=== PATIENT | female | born 1995 | race African-American/Black ===

== ENCOUNTER 2020-03-27 13:25 | Outpatient (CLI) | payer OTHER, SELFPAY ==
--- NOTE | ~2020-03-27 | US_ITS ---
EXAMINATION: US OB /maternal detail DATE: 03/27/2020 14:31 INDICATION: Second trimester anatomic survey TECHNIQUE: Real-time ultrasound of the pelvis was performed. COMPARISON: None. FINDINGS: There is a single living fetus in vertex presentation. The placenta is fundal. heart rate is 14 4 beats per minute (bpm). cardiac activity and movement are noted. The amniotic fluid in dex is 14.3 cm which is normal. The following anatomy was identified as normal: 4 chamber heart 3 vessel cord cord insertion kidneys urinary bladder stomach spine diaphragm ventricles cisterna magna cerebellum The following biometric data were obtained: Biparietal diameter (BPD): 5.0 cm; head circumference (HC): 18.1 cm; abdominal circumference (AC): 16 .5 cm; femur length (FL): 3.4 cm. These measurements are concordant. Estimated weight is 401 g +/- 60 g, which correlates with the 76th percentile when 08/10/2020 is used as estimated date of delivery. As single measurements, these parameters are each equal to the following estimated gestational ages w ith ranges of +/- 2 standard deviations: BPD: 21 weeks 2 days +/- 1 weeks 5 days. HC: 20 weeks 4 days +/- 1 weeks 3 days. AC: 21 weeks 4 days +/- 2 weeks 0 days. FL: 20 weeks 5 days +/- 1 weeks 6 days. estimated gestational age based solely on measurements from this exam is 21 weeks 0 days +/- 1 weeks 3 days. IMPRESSION: 1. Single living fetus in vertex presentation. 2. Estimated weight is 401 g +/- 60 g, which correlates with the 76th percentile when 08/10/2020 is used as estimated date of delivery. 3. Normal amniotic fluid index. Reviewed, dictated and finalized at location [facility]. R [employer] IMPRESSION: 1. Single living fetus in vertex presentation. 2. Estimated weight is 401 g +/- 60 g, which correlates with the 76th per centile when 08/10/2020 is used as estimated date of delivery. 3. Normal amniotic fluid index.
== END 2020-03-27 13:26 | disposition home or self-care (01) ==
LOC: ANHIMG 13:33
PROVIDERS: Visit Provider Obstetrics & Gynecology
DX: Z34.92 Encounter for supervision of normal pregnancy, unspecified, second trimester (principal); Z3A.21 21 weeks gestation of pregnancy
CPT/HCPCS: 76805

== ENCOUNTER 2020-08-04 11:00 | Inpatient (IN) | payer OTHER, SELFPAY ==
[2020-08-04] VITALS (78 sets, daily range): BP systolic 98–169; BP diastolic 41–115; PULSE 64–121; RESP 16; TEMP 36.5–36.8; O2SAT 94–100; BMI 30.6
--- OUTSIDE RECORDS SUMMARY | 2020-08-04 11:31 | XMS_ITS | Encounter Summary ---
:1995 Author Care Team Providers Name Role Phone Speedy Rider MD Rough Rib Grader [phone] Reason for Visit ob routine visit CC No spotting, cramping, fluid leakage, or contractions . Baby is moving a lot. Assessment and Plan Assessment Note Britton TORRES 1. Routine care 25 y/o F with PMH of B V, JUNITO, GBS, HPV presents as JUANCHO at 29w. No concerns today. US 05/23/20 with EFW 66%, BLAIRE wnl. RTC in 2 weeks. ? urinalysis, dipstick Discussion Note: None recorded.Patient educational handouts: No information available. Plan of Care Reminders Provider Appointments on or around Wendy Rider, 15 08/29/2020 ? 09/04/2020 Speedy alves, 15 9:00AM Lab Urinalysis, 05/25/2020 In-Of fice Order Dipstick Referral None ? ? recorded. Procedures None ? ? recorded. Surgeries None ? ? recorded. Imaging None ? ? recorded. Medications Name Start Date ? ? calcium carbonate 600 mg (1,500 mg)-vitamin D3 400 uni t tablet ? TAKE 1 TABLET BY MOUTH TWICE DAILY famotidine 20 mg tablet ? TAKE 1 TABLET BY MOUTH TWICE DAILY NEEDED metronidazole 500 mg tablet ? TAKE 1 TABLET BY MOUTH TWICE D
--- OUTSIDE RECORDS SUMMARY | 2020-08-04 11:31 | XMS_ITS | Encounter Summary ---
:1995 Author Care Team Providers Name Role Phone Speedy Rider MD Utilization Review Nurse [phone] Reason for Visit ob routine visit CC Pt is having cramping this morning , No spotting , fluid leakage or contractions . Baby moving a lot. Assessment and Plan 1. Routine care JUANCHO at 35w5d. c/b GA D and GBS. Proteinuria noted today, CBC, add'l labs ordered (discussed below). 3r d trimester US ordered to assess growth. RTC in [address] Rider . ? CBC - Please fax results t o [facility] [phone] ? urinalysis, dipstick ? US, obstetric, 3rd trimest er - growth assessment 2. screening GBS screening ? culture, vaginal/rectal, s treptococcus group B - Please fax results to [facility] [phone] 3. Venereal disease screening ? HSV (1+2) DNA, qual, PCR, unspecified specimen - Please fax results to [facility] [phone] ? bacterial vaginosis + vagi nitis panel, vaginal - Please fax results to [facility] [phone] 4. Proteinuria Protein is 100 on UA. Normoten sive, no edema on exam. Follow up 24 hour urine, PIH labs. ? protein, total, 24-hour ur ine ? CMP, serum or plasma ? uric acid, serum or plasma 5. Generalized anxiety disorder She has learned coping skills and it is now well controlled. Discussion Note: None recorded.Patient educational handouts: No information available. Plan of
--- OUTSIDE RECORDS SUMMARY | 2020-08-04 11:31 | XMS_ITS | Encounter Summary ---
:1995 Author Care Team Providers Name Role Phone Speedy Rider MD Gas Appliance Servicer [phone] Reason for Visit ob routine visit CC No spotting, cramping, fluid leakage, has had a few hernandez collazo contractions last week lasted about 5 minutes. Baby is moving a lot. Assessment and Plan Assessment Note BRIAN Pelaez 1. Routine care 25 y/o F with a history o f BV, JUNITO, GBS, HPV presents for a JUANCHO at 31w. Irregular Carolina Collazo contraction s. She denies any abnormal vaginal discharge, bleeding, leakage of fluids. WTC/WLB rev iewed. RTC in 2 weeks. ? urinalysis, dipstick 2. Generalized anxiety disorder She has learned coping skills and it is now well controlled. Discussion Note: None recorded.Patient educational handouts: No information available. Plan of Care Reminders Provider Appointments on or around Wendy Rider, 15 08/29/2020 ? 09/04/2020 Speedy alves, 15 9:00AM Lab Urinalysis, 06/08/2020 In-Of fice Order Dipstick Referral None ? ? recorded. Procedures None ? ? recorded. Surgeries None ? ? recorded. Imaging None ? ? recorded. Medications Name Start Date ? ?
--- OUTSIDE RECORDS SUMMARY | 2020-08-04 11:31 | XMS_ITS | Encounter Summary ---
:1995 Author Care Team Providers Name Role Phone Speedy Rider MD Conservation Policy Analyst [phone] Reason for Visit ob routine visit pt is asking about a breast pump once ba by is delivered pt is having tightening of her belly, contrations, alll last night. no bleeding and no sudden gush of fluids. Assessment and Plan 1. Routine care ? urinalysis, dipstick 2. Bacterial vaginosis [facility] on 07/13 ? bacterial vaginosis: care instructions 3. Group B Streptococcus carrier 4. Human papilloma virus infecti on 5. Generalized anxiety disorder The pt denies that she has jerome r taken medication for this in the past. ? anxiety disorder: care ins tructions Discussion Note: None recorded. Plan of Care Reminders Provider Appointments on or around Wendy Rider, 15 08/29/2020 ? 09/04/2020 Speedy alves, 15 9:00AM Lab Urinalysis, 07/25/2020 In-Of fice Order Dipstick Referral None ? ? recorded. Procedures None ? ? recorded. Surgeries None ? ? recorded. Imaging None ? ? recorded. Medications Name Start Date ? ?
--- OUTSIDE RECORDS SUMMARY | 2020-08-04 11:31 | XMS_ITS | Encounter Summary ---
:1995 Author Care Team Providers Name Role Phone Speedy Rider MD Stone Derrickman And Rigger [phone] Reason for Visit ob routine visit CC pt is still having some trouble with nausea and heartburn issues. No spotting, cramping, fluid leakage, or contractions. Baby moving a lot. Assessment and Plan Assessment Note BRIAN Pelaez 1. Routine care JUANCHO at 33w. c/b JUNITO and GBS. Having irregular contractions. Denies LOF, bleeding. +FM. RTC in 2 week s. ? urinalysis, dipstick 2. Generalized anxiety disorder She has learned coping skills and it is now well controlled. 3. Gastroesophageal reflux disea se without esophagitis Reports heartburn and nausea. Rx famotidine. Discussed avoiding irritating foods and not lying flat within 2 hours of eating. ? famotidine 20 mg tablet ? gastroesophageal reflux di sease (GERD): care instructions ? GERD diet education Discussion Note: None recorded. Plan of Care Reminders Provider Appointments on or around Wendy Rider, 15 08/29/2020 ? 09/04/2020 Speedy alves, 15 9:00AM Lab Urinalysis, 06/22/2020 In-Of fice Order Dipstick Referral None ? ? recorded. Procedures None ? ? recorded. Surgeries None ? ?
--- OUTSIDE RECORDS SUMMARY | 2020-08-04 11:31 | XMS_ITS | Encounter Summary ---
:1995 Author Care Team Providers Name Role Phone Speedy Rider MD X Ray Developer [phone] Reason for Visit ob routine visit Assessment and Plan 1. Routine care ? urinalysis, dipstick ? induction of labor (PROC) - Plan: Vaginal delivery with epidural. breast feeding. Dr. 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 Depo provera for PPBC. Emilee Davila for b yun girl's name 2. Group B Streptococcus carrier 3. Generalized anxiety disorder The pt denies that she has jerome r taken medication for this in the past. ? anxiety disorder: care ins tructions Discussion Note: None recorded. Plan of Care Reminders Provider Appointments on or around Wendy Rider, 15 08/29/2020 ? 09/04/2020 Speedy alves, 15 9:00AM Lab Urinalysis, 08/01/2020 In-Of fice Order Dipstick Referral None ? ? recorded. Procedures [facility] (L&D) Surgeries None ? ? recorded. Imaging None ? ? recorded. Medications Name Start Date ? ? calcium carbonate 600 mg (1,500 mg)-vitamin D3
--- OUTSIDE RECORDS SUMMARY | 2020-08-04 11:31 | XMS_ITS ---
:1995 Author Care Team Providers Name Role Phone ABDULLAHI PINA MD Child Psychologist [phone] Allergies Code Code System Name Reaction Severity Status Onset NKDA ? Medications Name Status Start Date Stop Date ? ? calcium carbonate 600 mg (1,500 mg)-vitamin D3 400 unit tablet A ctive ? Not available TAKE 1 TABLET BY MOUTH TWICE DAILY famotidine 20 mg tablet Active ? Not avai lable TAKE 1 TABLET BY MOUTH TWICE DAILY NEEDED imiquimod 5 % topical cream packet Completed ? 01/18/2020 APPLY TO THE AFFECTED AREA(S) BY TOPICAL ROUTE 3 TIMES PER WEEK AT BEDTIME USE UNTIL CLEARANCE OF WARTS FOR MAXIMUM OF 16 WEEKS medroxyprogesterone 150 mg/mL Completed ? intramuscular suspension metronidazole 0.75 % vaginal gel Completed ? 04/06/2020 metronidazole 500 mg tablet Active ? Not available TAKE 1 TABLET BY MOUTH TWICE DAILY FOR 7 DAYS multivitamin tablet Unknown ? Not availabl e Take 1 tablet every day by oral route. penicillin V potassium 500 mg tablet Completed ? 02/16/2020 28 mg iron-800 mcg tablet Active ? Not available Take 1 tablet every day by oral route. Vitamin tablet Active ? Not avai lable Take 1 tablet every day by oral route as directed for 90 days. Vitamins Plus Low Iron 27 mg iron-1 mg tablet Active ? Not available TAKE 1 TABLET BY MOUTH EVERY DAY Tab-A-César tablet Completed ? 01/18/2020 Problems Name Status
--- OUTSIDE RECORDS SUMMARY | 2020-08-04 11:31 | XMS_ITS | Encounter Summary ---
:1995 Author Care Team Providers Name Role Phone Speedy Rider MD Vascular Physician [phone] Reason for Visit ob routine visit Assessment and Plan Assessment Note Britton SALDANAS 1. Routine care 25 y/o F with PMH of B V, JUNITO, GBS, HPV presents as JUANCHO at 27w. FHT and fundal height today reassuring today . 1 hour GTT completed today. Tdap administered. Kick counts discussed. 3rd trimester US order provided. RTC in 2 weeks. ? urinalysis, dipstick ? Boostrix Tdap 2.5 Lf unit- 8 mcg-5 Lf/0.5 mL intramuscular syringe ? US, obstetric, 3rd trimest er ? counting your baby's kicks : care instructions ? kick counts ? CBC - Please fax results t o [facility] [phone] 2. screening ? glucose tolerance test, po st-50G, 1-hour - Please fax results to [facility] [phone] 3. Venereal disease screening ? RPR (rapid plasma reagin), serum - Please fax results to [facility] [phone] ? HIV 1+2 AB + HIV 1 p24 Ag, qualitative immunoassay, serum - Please fax results to [facility] [phone] Discussion Note: None recorded. Plan of Care Reminders Provider Appointments 15 on or around Speedy Rider, 08/29/2020 ? 15 09/04/2020 Adelaida Rider,
--- OUTSIDE RECORDS SUMMARY | 2020-08-04 11:31 | XMS_ITS | Encounter Summary ---
:1995 Author Care Team Providers Name Role Phone Speedy Rider MD General Store Manager [phone] Reason for Visit ob routine visit Assessment and Plan Assessment Note BRIAN Handy 1. Routine care ? urinalysis, dipstick 2. Bacterial vaginosis [facility] on 07/13 3. Generalized anxiety disorder The pt denies that she has jerome r taken medication for this in the past. ? anxiety disorder: care ins tructions 4. Group B Streptococcus carrier 5. Human papilloma virus infecti on Discussion Note: None recorded. Plan of Care Reminders Provider Appointments on or around Wendy Rider, 15 08/29/2020 ? 09/04/2020 Speedy alves, 15 9:00AM Lab Urinalysis, 07/18/2020 In-Of fice Order Dipstick Referral None ? ? recorded. Procedures None ? ? recorded. Surgeries None ? ? recorded. Imaging None ? ? recorded. Medications Name Start Date ? ? calcium carbonate 600 mg (1,500 mg)-vitamin D3 400 uni t tablet ? TAKE 1 TABLET BY MOUTH TWICE DAILY
[2020-08-04] MEDS: LACTATED RINGERS 1,000 ML 999 ML IV CONT ×2 (11:40→12:37)
[2020-08-04] MEDS: AMPICILLIN 2 GM/NS 100 ML 2 GM/100 ML BAG IVPB (11:40)
[2020-08-04 11:56] LABS: Basophils Percent Auto 0.3 % (0.2-1.2); Eosinophils Absolute Auto 0.1 K/mm3 (0-0.3); Eosinophils Percent Auto 0.3 % (0-4.4); Hematocrit 37.4 % (37.0-47.0); Immature Granulocyte Absolute 0.22 K/mm3 (0.00-0.031); Immature Granulocyte Percent A 1.5 % (0-0.5); Lymphocytes Absolute Auto 1.42 K/mm3 (0.9-3.2); Lymphocytes Percent Auto 9.4 % (18.3-44.2); Mean Corpuscular HGB Conc 32.1 g/dl (32-36); Mean Corpuscular Hemoglobin 30.9 pg (26-34); Mean Corpuscular Volume 96.4 fl (80-100); Mean Platelet Volume 10.5 fl (7.4-10.4); Monocytes Absolute Auto 1.2 K/mm3 (0.1-0.6); Monocytes Percent Auto 7.8 % (2.6-8.5); Neutrophils Absolute Auto 12.3 K/mm3 (1.3-6.7); Neutrophils Percent Auto 80.7 % (45.5-73.1); Platelet Count Result 220 k/mm3 (150-375); Red Blood Count 3.88 M/mm3 (4.2-5.4); Red Cell Distribution Width 12.9 % (11.5-14.5); White Blood Count 15.2 K/mm3 (4.5-10.0)
--- NOTE | 2020-08-04 12:25 | P.PNAN_ITS ---
Anes - Eval Pre Procedure Procedure: labor epidural Date/Time: 08/04/20 12:25 Preop Diagnosis: labor epidural Pre Op Diagnosis: CONTRACTIONS Patient Data Age: 25 Gender: F Height: 5 ft 2 in Weight: 76 kg Last Vital Signs Pulse 89 08/04/20 12:07 BP 123/88 08/04/20 12:07 Pulse Ox 100 08/04/20 12:22 Allergies Allergy/AdvReac Type Severity Reaction Status Date / Time No Known Allergies Allergy Verified 07/14/20 15:02 Home Medications Medication Instructions Recorded Confirmed Type prenat.vits,renny,zim-itlu-qecsz 1 tablet PO DAILY 07/14/20 08/04/20 History [ #2] Laboratory Tests 08/04/20 11:40 WBC 15.2 K/mm3 H K/mm3 (4.5-10.0) RBC 3.88 M/mm3 L M/mm3 (4.2-5.4) Hgb 12.0 g/dL g/dL (12.0-15.0) Hct 37.4 % % (37.0-47.0) MCV 96.4 fl fl (80-100) MCH 30.9 pg pg (26-34) MCHC 32.1 g/dl g/dl (32-36) RDW 12.9 % % (11.5-14.5) Plt Count 220 k/mm3 k/mm3 (150-375) MPV 10.5 fl H fl (7.4-10.4) Immature Gran % (Auto) 1.5 % H % (0-0.5) Neut % (Auto) 80.7 % H % (45.5-73.1) Lymph % (Auto) 9.4 % L % (18.3-44.2) [place] % (Auto) 7.8 % % (2.6-8.5) Eos % (Auto) 0.3 % % (0-4.4) Baso % (Auto) 0.3 % % (0.2-1.2) Lymph # (Auto) 1.42 K/mm3 K/mm3 (0.9-3.2) [place] # (Auto) 1.2 K/mm3 H K/mm3 (0.1-0.6) Eos # (Auto) 0.1 K/mm3 K/mm3 (0-0.3) Baso # (Auto) 0.0 K/mm3 K/mm3 (0.0-0.1) Abs Immat Gran (auto) 0.22 K/mm3 H K/mm3 (0.00-0.031) Absolute Neuts (auto) 12.3 K/mm3 H K/mm3 (1.3-6.7) Absolute Nucleated RBC 0.0 K/mm3 K/mm3 (0.0-0.012) Nucleated RBC % 0.0 % % (0.0-0.2) Patient hx anesthesia problems: none Family hx anesthesia problems: none [facility] Family History Family History (Updated 07/14/20 @ 15:05 by Ok Nava RN) Grandparent Cancer Sibling Eye cancer Stomach cancer Social History Social History Smoking status: Never smoker Second hand tobacco smoke exposure: No Substance use: never Spiritual care concerns: No Exam Day of Procedure 08/04/20 12:25
--- NOTE | 2020-08-04 13:05 | PM.IMHP ---
H&P: HPI History of Present Illness Date/Time: 08/04/20 13:05 25yo F 39.1 weeks with c/b JUNITO, BV and GBS presents with spontaneous onset of labor 5 cm on admission with bulging bag of water waqas every 2 minutes in active labor Plan: Vaginal delivery with epidural. breast feeding. Dr. Magnus Devine in [place] for Hot Baller maybe. Carmelita ashley for PPBC. Emilee Davila for baby girl's name. Chief Complaint: term , spontaneous onset of labor, GBS positive Review of Systems Review of Systems: All systems reviewed & are unremarkable except as noted in HPI and below Constitutional: Constitutional: Reports no additional constitutional complaints Eyes: Eyes: Reports no additional eye complaints ENT: Reports system reviewed and no additional complaints, except as documented Cardiovascular: Cardiovascular: Reports no additional cardiovascular complaints Respiratory: Respiratory: Reports no additional respiratory complaints Gastrointestinal: Gastrointestinal: Reports no additional gastrointestinal complaints Genitourinary: Genitourinary: Reports no additional female genitourinary complaints Musculoskeletal: Musculoskeletal: Reports no additional musculoskeletal complaints Integumentary/Breasts: Skin/Breast: Reports system reviewed and no additional complaints, except as docu Neurologic: Reports system reviewed and no additional complaints, except as documented Psychiatric: Psychiatric: Reports no additional psychiatric complaints Endocrine: Endocrine: Reports no additional endocrine complaints Hematologic/Lymphatic: Hematologic/Lymphatic: Reports no additional hematologic/lymphatic complaints Allergic/Immunologic: Allergic/Immunologic: Reports no additional allergic/immunologic complaints [facility] Past Medical History Medical History (Updated 08/04/20 @ 13:13 by Speedy Rider MD) BV (bacterial vaginosis) JUNITO (generalized anxiety disorder) GBS (group B Streptococcus carrier), +RV culture, currently HPV (human papilloma virus) infection Term Vaginal delivery 12/25/201314014 hrs.7 lbs.4 oz.MStandard Vaginal [facility]Full [facility] Son's name is John. Vaginal delivery 03/09/20151396 hrs.6 lbs.6 oz.FStandard Vaginal DeliveryFull [facility]. Duaghter's name is Flavia. Family History Family History Grandparent Cancer Sibling Eye cancer Stomach cancer Social History Social History (Updated 08/04/20 @ 13:13 by Speedy Rider MD) Smoking status: Never smoker Second hand tobacco smoke exposure: No Alcohol intake: never Substance use: never Substance use type: does not use Living arrangements: with family Occupation/Education: unemployed Gender identity (if verbalized by the patient): Female Sexual Orientation (if Verbalized by the Patient): Straight or Heterosexual Spiritual care concerns: No Agree to blood products: Yes Meds Home Medications and Allergies Home Medications Medication Instructions Recorded Confirmed Type prenat.vits,renny,ebk-sibz-uepci 1 tablet PO DAILY 07/14/20 08/04/20 History [ #2] Allergies Allergy/AdvReac Type Severity Reaction Status Date / Time No Known Allergies Allergy Verified 07/14/20 15:02 Vital Signs Vital Signs - 24 hr 08/04/20 11:30 08/04/20 12:07 08/04/20 12:12 Temperature 98 F Pulse Rate 89 Blood Pressure 123/88 Pulse Oximetry 100 100 08/04/20 12:17 08/04/20 12:22 08/04/20 12:27 Temperature Pulse Rate Blood Pressure Pulse Oximetry 100 100 100 08/04/20 12:28 08/04/20 12:30 08/04/20 12:32 Temperature Pulse Rate 99 98 89 Blood Pressure 132/91 H 131/83 131/83 Pulse Oximetry 100 08/04/20 12:35 08/04/20 12:37 08/04/20 12:40 Temperature Pulse Rate 104 H 100 94 Blood Pressure 113/60 135/85 140/81 Pulse
--- NOTE | 2020-08-04 13:07 | P.HPUP_ITS ---
History and Physical Update Update Date/Time: 08/04/20 13:07 History and Physical has been reviewed, including an updated exam of the patient. There are NO changes in the patient's condition. Risks, benefits, and alternatives have been discussed and questions answered. Patient agrees to proceed with procedure. 25yo F 39.1 weeks with c/b JUNITO, BV and GBS presents with spontaneous onset of labor 5 cm on admission with bulging bag of water contrac ting every 2 minutes in active labor
--- NOTE | 2020-08-04 13:08 | P.HP_ITS ---
Obstetrics - Admit Note Admission Note: record reviewed. No pertinent additions to the history and/or any subsequent changes in the physical findings that are not consistent with the expected course of the were found. Additions to the history and/or subsequent changes in the physical findings follow. None. 25yo F 39.1 weeks with c/b JUNITO, BV and GBS presents with spontaneous onset of labor 5 cm on admission with bulging bag of water waqas every 2 minutes in active labor Plan: Vaginal delivery with epidural. breast feeding. Dr. 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 Depo provera for PPBC. Emilee Davila for baby girl's name.
--- NOTE | 2020-08-04 13:17 | PM.OBPNLAB ---
Pain Control Date/time seen: 08/04/20 13:17 Pain control: tolerating well and epidural Pelvic Exam Dilation (cm): 9 Effacement (%): 100 station: 0 Amniotic membrane status: Ruptured Contractions Monitor mode: External Contraction frequency: 2 Contraction duration: 45 Contraction pattern: Regular Contraction phase: Contraction Contraction intensity: Strong/Firm Status status: Category l Assessment and Plan Assessment: active labor Plan: continuous present management
--- NOTE | 2020-08-04 13:19 | PM.OBDSVD ---
DS: Admitting Diagnosis Admitting Diagnosis Admitting Diagnosis: term Spontaneous onset of labor GBS positive JUNITO DS: Discharge Diagnosis Discharge Diagnosis (1) Term delivered: Code(s): O80 - Encounter for full-term uncomplicated delivery Status: Acute (2) Spontaneous onset of labor: Status: Acute (3) GBS (group B Streptococcus carrier), +RV culture, currently : Code(s): O99.820 - Streptococcus B carrier state complicating Status: Acute OB - DS: Summary Hospital Course Time spent discussing smoking cessation with patient: 3 to 10 minutes OB Procedures : Ultrasound OB Procedures Intrapartum: Spontaneous Vag Delivery OB Procedures: : None Peripartum Data Infant Delivery Method: Natural Vaginal Time Spent with Patient Time attestation: Total time spent providing and/or coordinating discharge services: Exam Const: General: cooperative, healthy appearing, comfortable, no acute distress, well developed, alert, awake and Physically active Nutritional Appearance: average body habitus Orientation/consciousness: patient oriented x3 Limitations: no limitations HENMT: Head: normal to inspection Eyes: General: appearance normal, both eyes and all related structures Neck: Neck: normal visual inspection Chest: Chest palpation & inspection: normal inspection of the chest Resp: Effort & Inspection: normal respiratory effort Cardio: Rate: regular rate Rhythm: regular rhythm GI: Inspection: normal to inspection : External Female Exam: normal external appearance Back/Spine/Pelvis: Back: no CVA tenderness Skin: General skin exam: normal color Neuro: General: patient oriented x3, gait normal, tone normal and moves all extremities Extrem: General: normal to inspection Psych: Appearance: grossly normal Mental Status: mental status grossly normal Speech and movement: Normal speech and movement present Affect: normal affect Attitude: cooperative Thought process: Normal thought process present Thought content: Yes Normal thought content present Insight: Good insight present (Psych) Judgement: Good judgement present (Psych) DS: Data Data Completed and Pending Labs on day of discharge: Labs from last 24 hours 08/04/20 08/04/20 08/04/20 11:40 11:40 11:40 WBC 15.2 H RBC 3.88 L Hgb 12.0 Hct 37.4 MCV 96.4 MCH 30.9 MCHC 32.1 RDW 12.9 Plt Count 220 MPV 10.5 H Immature Gran % (Auto) 1.5 H Neut % (Auto) 80.7 H Lymph % (Auto) 9.4 L Greene % (Auto) 7.8 Eos % (Auto) 0.3 Baso % (Auto) 0.3 Lymph # (Auto) 1.42 Greene # (Auto) 1.2 H Eos # (Auto) 0.1 Baso # (Auto) 0.0 Abs Immat Gran (auto) 0.22 H Absolute Neuts (auto) 12.3 H Absolute Nucleated RBC 0.0 Nucleated RBC % 0.0 RPR Pending Blood Type O Positive Antibody Screen Negative Discharge Plan Discharge Attending physician on discharge: Speedy Rider Discharging Clinician: Ward Campbell Anticipated Discharge Date/Time: 08/06/20 06:00 Patient Disposition: Home, Self-Care Activity: as tolerated Diet: as tolerated Wound Care Instructions: follow printed instructions Discharge Instructions: call office friday for f/u with Dr Rider Education: Mom and Baby Guide Given to: Mother Follow-Up: Call your delivering provider's office for an appointment to be seen in: 4 Weeks Mom and baby should come to the [facility] for the follow-up appointment. Appointment Date/Time: Saturday, August 08, 2020 at 8:00 am What to expect at your follow-up visit: Blood Pressure Check Physical Assessment Call [phone] if you are unable to keep your appointment time. BREAST CARE: * Wear a snug supportive bra. * For engorgement discomfort: Breast Feeding: * Apply warm moist washcloths * Express milk as needed to relieve engo
[2020-08-04] MEDS: OXYTOCIN 30 UNITS/NS 500 ML 30 UNITS/500 ML BAG IV CONT (13:45)
[2020-08-04 14:22] LABS: Rapid Plasma Reagin Non-Reactive (NonReactive)
--- NOTE | 2020-08-04 15:49 | P.PCNOB_ITS ---
OB - Delivery Note Procedure Delivery date: 08/04/20 Procedure: Vacuum assisted vertex vaginal delivery a viable female and placenta repair of first-degree perineal laceration Intrapartal events: None Induction method: none Delivery augmentation: rupture of membranes and pitocin Delivery monitor: external FHT and internal FHT Route of delivery: vacuum extraction ( 1 pull green zone 10 seconds) Indication for instrumentation: nonreassuring FHR tracing Episiotomy description: None Laceration Description: Perineal - 1st Degree Delivery repair: chromic Specimen: Yes ( placenta cord blood gases cord blood) Quantitative Blood Loss (ml): 300 Anesthesia type: Epidural Disposition: floor Complications: none Narrative: vacuum assisted vertex vaginal delivery a viable female infant over an intact perineum anterior shoulder delivered with Sean removed for baby delivered without difficulty placed on the maternal abdomen cord can't clamped and cut spontaneous respirations and cry normal transition scores 7 and 9 at 1 and 5 minutes weight 7 lb 11 oz taken to the nursery in stable condition cord gases cord blood obtained placenta delivered intact three-vessel cord uterus contracted well Pitocin given intravenously. First-degree perineal laceration repaired with 2 0 chromic suture running fashion cervix and rectum were checked no sponges left in the vagina no fistula sphincters intact mom and baby stable condition [place] Baby Date of : 08/04/20 Time of : 15:35 Weeks of gestation at delivery: 39 gender: Female Weight (pounds): 7 Weight (ounces): 11 presentation: vertex position: Left Occiput Transverse Placenta delivery description: Spontaneous and Normal Configuration cord vessel description: 3 Vessels score one minute: 7 score five minutes: 9 Narrative: baby to nursery in stable condition
[2020-08-04] MEDS: OXYTOCIN 30 UNITS/NS 500 ML 30 UNITS/500 ML BAG 125 UNITS IV CONT (16:03)
[2020-08-04] MEDS: IBUPROFEN 600 MG TABLET PO (18:05)
[2020-08-04 18:12] LABS: Alanine Aminotransferase 14 U/L (4-35); Albumin Level 3.3 g/dL (3.5-5.1); Alkaline Phosphatase 170 U/L (38-126); Anion Gap 4 mmol/L (8-16); Aspartate Amino Transferase 35 U/L (14-36); Bilirubin,Total 0.6 mg/dL (0.2-1.3); Blood Urea Nitrogen 5 mg/dL (7-17); Calcium 8.8 mg/dL (8.4-10.2); Carbon Dioxide 26 mmol/L (22-30); Chloride 108 mmol/L (98-107); Estimated CRCL calculation 114 ml/min; Estimated Glomerular Filt Rate > 60; Glucose 70 mg/dL (65-105); Potassium 3.8 mmol/L (3.4-5.0); Sodium 138 mmol/L (137-145); Uric Acid 3.8 mg/dL (2.5-7.5)
--- NOTE | 2020-08-04 18:25 | OBPPTRN ---
Patient transferred to post room #288 via w/c. Support person present. Oriented to unit, room, information board, rooming in, admission packet and security measures. Patient verbalizes understanding.
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
[2020-08-05 00:30] VITALS: BP 113/75; PULSE 70; RESP 16; TEMP 36.6; O2SAT 98
[2020-08-05] MEDS: IBUPROFEN 600 MG TABLET PO ×3 (02:35→16:31)
[2020-08-05 05:45] VITALS: BP 122/74; PULSE 68; RESP 16; TEMP 36.8; O2SAT 99
[2020-08-05 06:22] LABS: Hematocrit 32.9 % (37.0-47.0); Hemoglobin 10.7 g/dL (12.0-15.0)
--- NOTE | 2020-08-05 06:50 | PM.OBDSVD ---
DS: Admitting Diagnosis Admitting Diagnosis Admitting Diagnosis: OB - DS: Summary OB Procedures : None OB Procedures Intrapartum: Spontaneous Vag Delivery OB Procedures: : None Time Spent with Patient Time attestation: Total time spent providing and/or coordinating discharge services: DS: Data Data Completed and Pending Labs on day of discharge: Labs from last 24 hours 08/05/20 08/04/20 08/04/20 06:16 17:53 11:40 WBC RBC Hgb 10.7 L Hct 32.9 L MCV MCH MCHC RDW Plt Count MPV Immature Gran % (Auto) Neut % (Auto) Lymph % (Auto) Ware % (Auto) Eos % (Auto) Baso % (Auto) Lymph # (Auto) Ware # (Auto) Eos # (Auto) Baso # (Auto) Abs Immat Gran (auto) Absolute Neuts (auto) Absolute Nucleated RBC Nucleated RBC % Sodium 138 Potassium 3.8 Chloride 108 H Carbon Dioxide 26 Anion Gap 4 L BUN 5 L Creatinine 0.60 L Estim Creat Clear Calc 114 Estimated GFR > 60 Glucose 70 Uric Acid 3.8 Calcium 8.8 Total Bilirubin 0.6 AST 35 ALT 14 Alkaline Phosphatase 170 H Total Protein 7.0 Albumin 3.3 L RPR Blood Type O Positive Antibody Screen Negative 08/04/20 08/04/20 11:40 11:40 WBC 15.2 H RBC 3.88 L Hgb 12.0 Hct 37.4 MCV 96.4 MCH 30.9 MCHC 32.1 RDW 12.9 Plt Count 220 MPV 10.5 H Immature Gran % (Auto) 1.5 H Neut % (Auto) 80.7 H Lymph % (Auto) 9.4 L Ware % (Auto) 7.8 Eos % (Auto) 0.3 Baso % (Auto) 0.3 Lymph # (Auto) 1.42 Ware # (Auto) 1.2 H Eos # (Auto) 0.1 Baso # (Auto) 0.0 Abs Immat Gran (auto) 0.22 H Absolute Neuts (auto) 12.3 H Absolute Nucleated RBC 0.0 Nucleated RBC % 0.0 Sodium Potassium Chloride Carbon Dioxide Anion Gap BUN Creatinine Estim Creat Clear Calc Estimated GFR Glucose Uric Acid Calcium Total Bilirubin AST ALT Alkaline Phosphatase Total Protein Albumin RPR Non-reactive Blood Type Antibody Screen Discharge Plan Discharge Discharging Clinician: Ward Campbell Anticipated Discharge Date/Time: 08/06/20 06:00 Patient Disposition: Home, Self-Care Activity: as tolerated Diet: as tolerated Discharge Instructions: call office friday for f/u with Dr Rider Patient Instructions: Antibiotic Form Stand Alone Forms: General Discharge Information Follow-up/Referrals: Speedy Rider MD [Physician] - 3 Weeks Discharge Medications: New ibuprofen 600 mg Tablet 600 mg PO Q6H Qty: 30 RF: 0 Continued #2 Tablet 1 tablet PO DAILY RF: 0 Date of admission: 08/04/20 11:00 Primary Care Provider: PHYSICIAN,JUDICIAL ASSISTANT Admitting Provider: Speedy Rider Attending physician on admission: Speedy Rider Condition: Stable
[2020-08-05 09:23] VITALS: BP 124/69; PULSE 84; RESP 16; TEMP 36.2; O2SAT 98
[2020-08-05] MEDS: DOCUSATE SODIUM 100 MG CAPSULE PO ×2 (09:23→16:31)
--- NOTE | 2020-08-05 10:35 | WPDANLDPN2 ---
Anes-Prog Note L&D Date/Time: 08/05/20 10:35 Comfortable throughout: labor and delivery Neuraxial method: epidural Epidural/Spinal procedure site: clean & non-tender Neuro status: Neuro function grossly intact. Cardiovascular status: normal Respiratory status: normal Airway patency: baseline Mental status: baseline Post-Op hydration status: normal Vital Signs: Last Vital Signs Temp 36.2 C L 08/05/20 09:23 Pulse 84 08/05/20 09:23 Resp 16 08/05/20 09:23 BP 124/69 08/05/20 09:23 Pulse Ox 98 08/05/20 09:23 Pain score (VAS): 0 I/O: Intake & Output 08/04/20 08/05/20 08/05/20 23:59 07:59 15:59 Intake Total 1400 500 Output Total 1000 Balance 400 500 Post-procedural complaints: none Patient feedback: Patient satisfied with anesthetic care.
[2020-08-05 14:00] VITALS: BP 114/72; PULSE 84; RESP 16; TEMP 36.2; O2SAT 99
[2020-08-05 20:15] VITALS: BP 129/80; PULSE 82; RESP 14; TEMP 36.8
[2020-08-06] MEDS: IBUPROFEN 600 MG TABLET PO (07:31)
[2020-08-06] MEDS: MULTIVIT/MIN/PREN/FOL AC/IRON TABLET 1 TAB PO (07:31)
[2020-08-06] MEDS: WITCH HAZEL 40 PADS 1 PAD TOPICAL (07:31)
[2020-08-06] MEDS: DOCUSATE SODIUM 100 MG CAPSULE PO (07:31)
[2020-08-06 08:00] VITALS: BP 128/88; PULSE 64; RESP 18; TEMP 36.4
--- NOTE | 2020-08-06 09:26 | PC.NURSE ---
Self care and infant care discharge instructions given including follow up visit date and time. Mother verbalized understanding. No questions or concerns voiced. Very pleasant and cooperative.
== END 2020-08-06 11:35 | disposition home or self-care (01) | DRG 560 ==
LOC: ANHLDR 11:51 → ANHOB2 08-05 06:51 → ANHLDR 08-09 07:37 → ANHOB2 08-09 07:37
PROVIDERS: Admitting Provider Obstetrics & Gynecology; Visit Provider Obstetrics & Gynecology
DX: O99.824 Streptococcus B carrier state complicating childbirth (principal); O70.0 First degree perineal laceration during delivery; Z3A.39 39 weeks gestation of pregnancy; Z37.0 Single live birth
CPT/HCPCS: 36415; 80053; 84550; 85014; 85018; 85025; 86592; 86850; 86900; 86901; 88307; A9270; J0290; J2590; J2795; J7120